=== PATIENT | female | born 2000 | race American Indian/Alaskan Native ===

== ENCOUNTER 2018-11-09 15:57 | Emergency (ER) | payer SELFPAY ==
[2018-11-09 16:13] VITALS: BP 126/69
[2018-11-09] MEDS ORDERED: XYLOCAINE 1% MPF 5 mL INFILTRATI ONE ×2 (19:38→20:21)
--- NOTE | 2018-11-09 20:18 | Emergency Department Report ---
ED Female HPI - General Chief complaint: Skin/Abscess/Foreign Body Stated complaint: CYST ON VAGINAL AREA Time Seen by Provider: 11/09/18 19:30 Source: patient Mode of arrival: Wheelchair Limitations: No Limitations - History of Present Illness Initial comments: Presently 18-year-old -[place] female who presents with cyst right labial recurrent patient denies STD last occurrence 6 months ago last menstrual period 2 weeks ago there is no fever no chills no other symptoms. Symptoms are exacerbated by touch palpation symptoms are relieved by nothing MD Complaint: other (bartholin Cyst ) Onset/Timin -: week(s) Radiation: non-radiating Severity: moderate Severity scale (0 -10): 5 Quality: sharp Improves with: none Worsens with: none Are you Now?: No Last Menstrual Period: 10/26/18 EDC: 08/02/19 - Related Data Sexually active: Yes : 0 Para: 0 A: 0 Previous Rx's Medication Instructions Recorded Last Taken Type Cephalexin [Keflex] 500 mg PO TID 10 Days #30 capsule 11/09/18 Unknown Rx metroNIDAZOLE [Flagyl] 500 mg PO BID 10 Days #20 tab 11/09/18 Unknown Rx Allergies Allergy/AdvReac Type Severity Reaction Status Date / Time No Known Allergies Allergy Verified 11/09/18 16:10 ED Review of Systems ROS: Stated complaint: CYST ON VAGINAL AREA Other details as noted in HPI Constitutional: denies: chills, fever Eyes: denies: eye pain, eye discharge, vision change ENT: denies: ear pain, throat pain Respiratory: denies: cough, shortness of breath, wheezing Cardiovascular: denies: chest pain, palpitations Endocrine: no symptoms reported Gastrointestinal: denies: abdominal pain, nausea, diarrhea Genitourinary: other (bartholin cyst ). denies: urgency, dysuria, discharge Musculoskeletal: denies: back pain, joint swelling, arthralgia Skin: denies: rash, lesions Neurological: denies: headache, weakness, paresthesias Psychiatric: denies: anxiety, depression Hematological/Lymphatic: denies: easy bleeding, easy bruising ED Past Medical Hx - Past Medical History Previous Medical History?: No - Surgical History Past Surgical History?: No - Social History Smoking Status: Never Smoker Substance Use Type: None - Medications Home Medications: Home Medications Medication Instructions Recorded Confirmed Last Taken Type Cephalexin [Keflex] 500 mg PO TID 10 Days #30 capsule 11/09/18 Unknown Rx metroNIDAZOLE [Flagyl] 500 mg PO BID 10 Days #20 tab 11/09/18 Unknown Rx ED Physical Exam - General Limitations: No Limitations General appearance: alert, in no apparent distress - Head Head exam: Present: atraumatic, normocephalic - Eye Eye exam: Present: normal appearance - ENT ENT exam: Present: mucous membranes moist - Neck Neck exam: Present: normal inspection - Respiratory Respiratory exam: Present: normal lung sounds bilaterally. Absent: respiratory distress - Cardiovascular Cardiovascular Exam: Present: regular rate, normal rhythm. Absent: systolic murmur, diastolic murmur, rubs, gallop - GI/Abdominal GI/Abdominal exam: Present: soft, normal bowel sounds - Rectal Rectal exam: Present: deferred - External exam: Present: other (bartholin abscess ) - Extremities Exam Extremities exam: Present: normal inspection, full ROM - Back Exam Back exam: Present: normal inspection - Neurological Exam Neurological exam: Present: alert, oriented X3, CN II-XII intact - Psychiatric Psychiatric exam: Present: normal affect, normal mood - Skin Skin exam: Present: warm, dry, normal color. Absent: rash ED Course Vital Signs 11/09/18 16:10 Temperature 97.6 F Pulse Rate 76 Respiratory 16 Rate Blood Pressure 126/69 O2 Sat by Pulse 100 Oximetry - I & D Right Vagina Type of Procedure: Simple Site: right labial cyst abscess Blade Size: 11 I & D Procedure: betadine prep Progress: right labial bartholin abscess pain fluctuant mild erythema, no vaginal drainage, wound cleaned with betadine solution , anesthesia with 1% lidocaine 1 cc, incision with 11 blade x 1 stab incision mild purelent drainage, irrigated with sterile saline x 20 cc, all bleeding is controlled, sterile dressing with 4x4 gauze, pt given wound care instructions, pt verbalized agreement and understanding of same. ED Medical Decision Making - Lab Data Labs 11/09/18 20:20 Urine Color Yellow Urine Turbidity Cloudy Urine pH 7.0 Ur Specific Meredith 1.024 Urine Protein <15 mg/dl Urine Glucose (UA) Neg Urine Ketones Neg Urine Blood Neg Urine Nitrite Neg Ur Reducing Substances Not Reportable Urine Bilirubin Neg Urine Ictotest Not Reportable Urine Urobilinogen 2.0 Ur Leukocyte Esterase Neg Urine WBC (Auto) 2.0 Urine RBC (Auto) 6.0 U Epithel Cells (Auto) 9.0 Urine Bacteria (Auto) 1+ Urine Mucus 3+ Urine HCG, Qual Negative - Medical Decision Making As a Bartholin abscess status post I&D see procedure note sterile dressing is intact all bleeding is controlled patient tolerated procedure distress with be seen home with prescription for Keflex and flagyl, this is the third such cyst in one year, patient treated prophylactically for STI this time urine and hCG noted patient will follow up PCP 1-3 days. Critical care attestation.: If time is entered above; I have spent that time in minutes in the direct care of this critically ill patient, excluding procedure time. ED Disposition Clinical Impression: Bartholin cyst Disposition: TO HOME OR SELFCARE Is pt being admited?: No Does the pt Need Aspirin: No Condition: Stable Instructions: Bartholin Cyst (ED), Incision and Drainage (ED) Prescriptions: Cephalexin [Keflex] 500 mg PO TID 10 Days #30 capsule metroNIDAZOLE [Flagyl] 500 mg PO BID 10 Days #20 tab Referrals: PRIMARY CARE, [Primary Care Provider] - 3-5 Days [facility] [Outside] - 3-5 Days Forms: Work/School Release Form(ED) Time of Disposition: 21:09
[2018-11-09] MEDS ORDERED: ULTRAM PO ONE (20:21)
[2018-11-09] MEDS ORDERED: ROCEPHIN IM ONE (20:21)
[2018-11-09] MEDS ORDERED: ZITHROMAX PO ONE (20:21)
[2018-11-09] MEDS ORDERED: ULTRAM ONE (20:22)
[2018-11-09] MEDS ORDERED: ZITHROMAX ONE (20:23)
[2018-11-09] MEDS ORDERED: ROCEPHIN ONE (20:24)
[2018-11-09 20:52] LABS: HCG Qualitative,Urine Negative (Negative)
[2018-11-09 20:54] LABS: Bacteria,Urine 1+ /HPF (Negative); Bilirubin,Urine NEG (Negative); Blood,Urine NEG (Negative); Color,Urine Yellow (Yellow); Mucus,Urine 3+ /HPF; Protein,Urine <15 mg/dL mg/dL (Negative)
== END 2018-11-09 21:27 | disposition home or self-care (01) ==
LOC: ED 15:57
DX: N75.0 Cyst of Bartholin's gland (principal)
CPT/HCPCS: 56420; 81001; 81025; 96372; 99283; J0696